=== PATIENT | male | born 1980 | race Caucasian/White ===

== ENCOUNTER → 2020-05-16 | Outpatient (CLI) | payer BC ==
[~2020-05-16] MED LIST: ALPR0.5T PO; ASPI-630 PO; BUSP15TA PO; DULO30CA2 PO; NAPR500T8 PO; TEST200V3 IM; TRAZ-118 PO; VALA10008 PO
== END | disposition home or self-care (01) ==
LOC: LAB 13:05
PROVIDERS: ATTEND Surgery
DX: Z20.828 Contact with and (suspected) exposure to other viral communicable diseases (principal)
CPT/HCPCS: U0003-CS

== ENCOUNTER 2020-05-19 06:20 | Day surgery (SDC) | payer BC ==
[~2020-05-19] VITALS: Ht 175.3 cm; Wt 109.5 kg
[~2020-05-19 06:20] MED LIST changes: +ACETAMINOPHEN 500 MG TABLET PO PRN
[2020-05-19] MEDS ORDERED: fentaNYL PF VIAL 100 MCG/2 ML VIAL ONE (06:57)
[2020-05-19] MEDS ORDERED: ONDANSETRON PF 4 MG/2 ML VIAL. ONE (06:57)
[2020-05-19] MEDS ORDERED: MIDAZOLAM HCL/PF 2 MG/2 ML VIAL. ONE (06:57)
[2020-05-19] MEDS ORDERED: DEXAMETHASONE SOD PHOS 4 MG/ML VIAL ONE (06:57)
[2020-05-19] MEDS ORDERED: PROPOFOL 10 MG/ML (20ML) VIAL. IV ONE ×2 (06:57→08:34)
[2020-05-19] MEDS ORDERED: LIDOCAINE 2% PF 5 ML VIAL. ONE (06:57)
[2020-05-19] MEDS ORDERED: SUCCINYLCHOLINE 200 MG/10 ML VIAL. ONE (07:03)
[2020-05-19] MEDS ORDERED: BUPIVACAINE-EPI 0.5%-1:200000 MPF 30 ML VIAL. ONE (07:09)
[2020-05-19] MEDS ORDERED: IV RINGERS,LACTATED 1000ML 1,000 ML IV SCH (07:15)
--- NOTE | 2020-05-19 08:22 | PDOC4 ---
Operative Note Operative Note Date: 05/19/2020 at 819 Preoperative diagnosis: Umbilical hernia Postoperative diagnosis: Same Procedure: Umbilical hernia repair Surgeon: Orlin Specimen hernia content Dictation: Patient is a 39-year-old gentleman is complained of a painful bulge at his umbilicus. The procedure of umbilical hernia repair was explained to the patient detail risk-benefit were also discussed occluding bleeding infection alternatives to this procedure also discussed with the patient who seemed to understand and gave both verbal and written consent to have the procedure performed. Patient was taken to the operating room placed the supine position general anesthesia was initiated once patient was sleeping in bed his abdomen was prepped and draped usual sterile fashion using ChloraPrep. Area around his umbilicus was injected quarter percent Marcaine with epinephrine incision was made with 15 blade scalpel just below the umbilicus this is carried down through the subcutaneous tissues electrocautery to provide hemostasis down to the fascia the fascial defect was visualized there was some incarcerated fat. This was excised sharply with electrocautery the hernia defect was then closed with a [id number] 0 Vicryl suture. The skin was reapproximated for subcuticular Monocryl Mastisol Steri-Strips and island dressing were applied. Patient was a wakened extubated in the operating room taken to recovery in stable condition all sponge instrument needle counts listed as correct estimated blood loss 2 mL. FAIZA NG MD May 19, 2020 08:22
--- NOTE | 2020-05-19 08:24 | DISCH ---
DISCHARGE INSTRUCTIONS Condition on Discharge Condition on Discharge: Stable Activity After Discharge Activity Instructions for Disc: Avoid exertion Other activity instructions: No lifting more than 20 pounds for 2 weeks Diet after Discharge Diet after Discharge: Regular Wound Incision Care Other wound/incision instructi: Tamela shower in 24 hours Contacting the after DC Call your doctor for: If your condition worsens Follow-Up Follow up with: Dr. Ng in 2 weeks FAIZA NG MD May 19, 2020 08:24
[2020-05-19] MEDS ORDERED: SEVOFLURANE 31 TO 60 MINUTES. IH ONE (08:34)
[2020-05-19] MEDS ORDERED: OXYC1TAB15 PO (08:46)
[2020-05-19] MEDS ORDERED: oxyCODONE/APAP 5/325 1 TAB TABLET PO ONE (09:00)
[2020-05-19 09:05] VITALS: BP 138/73
--- NOTE | 2020-05-22 14:07 | PATHOLOGY ---
[facility] Accession Number: [id number] . 01 Material submitted: . hernia - HERNIA CONTENTS . 01 Clinical history: . UMBILICAL HERNIA . 02 Diagnosis: Segments of fibroadipose tissue, umbilical hernia repair: - Hernia sac. . ([facility]:mm; 05/22/2020) [facility] 05/22/2020 1053 Local . 02 Electronically signed: . Stanley Mera MD, Pathologist NPI- [id number] . 01 Gross description: . Received in formalin labeled "Erasmo III, Stanley, hernia contents" are multiple fragments of yellow-brooks fibroadipose tissue measuring in aggregate 3.7 x 2.5 x 1.4 cm. Upon sectioning, focal fibrotic areas are identified. No masses or nodules are present. Operations Supervisor tissue is submitted in cassette A1. ([facility] [place] 05/21/2020) [facility] 05/21/2020 1421 Local . 02 Pathologist provided ICD-10: K42.9 . 02 CPT . 159651 Specimen Comment: A courtesy copy of this report has been sent to [phone], [phone] Specimen Comment: [id number] Specimen Comment: Report sent to / DR YAN Performed at: 01 [facility] [address], [place], [place] [id number] MD Jacobo Limon MD Phone: [phone] Performed at: 02 [facility] [place] [place] [address] [place], [place] [id number] MD Stanley Mera MD Phone: [phone]
== END 2020-05-19 09:40 | disposition home or self-care (01) ==
LOC: SURG 06:20 → EDUNIT# 08:00 → SURG 09:40
PROVIDERS: ATTEND Surgery
DX: K42.0 Umbilical hernia with obstruction, without gangrene (principal); Z88.2 Allergy status to sulfonamides; Z88.5 Allergy status to narcotic agent; Z88.8 Allergy status to other drugs, medicaments and biological substances; Z79.899 Other long term (current) drug therapy; Z72.89 Other problems related to lifestyle; Z79.82 Long term (current) use of aspirin
CPT/HCPCS: 49587; J1100; J1956; J2250; J2405; J2704; J3010; J0330